=== PATIENT | female | born 1965 | race African-American/Black ===

== ENCOUNTER 2017-02-26 11:52 | Emergency (ER) | payer OTHER ==
[~2017-02-26] VITALS: Ht 157.5 cm; Wt 90.7 kg
[~2017-02-26 11:52] MED LIST: METFORMIN HCL500 MG PO; TOPROL XL25 MG PO
[2017-02-26 12:22] LABS: URINE BILIRUBIN NEGATIVE (Negative); URINE BLOOD TRACE (Negative); URINE COLOR YELLOW; URINE GLUCOSE-RANDOM* NEGATIVE (Negative); URINE KETONES NEGATIVE (Negative); URINE LEUKOCYTES-REFLEX TRACE (Negative); URINE PROTEIN (DIPSTICK) NEGATIVE (Negative); URINE SPECIFIC GRAVITY 1.015 (1.003-1.035); URINE UROBILINOGEN 0.2 E.U./dl (0.2-1.0)
== END 2017-02-26 13:20 | disposition left against medical advice (07) ==
LOC: ER 11:52
PROVIDERS: Physician Assistant
DX: R10.84 Generalized abdominal pain (principal); I10 Essential (primary) hypertension; E11.9 Type 2 diabetes mellitus without complications; Z53.21 Procedure and treatment not carried out due to patient leaving prior to being seen by health care provider; Z98.890 Other specified postprocedural states

== ENCOUNTER → 2021-03-14 | Outpatient (CLI) | payer BC, OTHER | LOC: SJCVCIMAG 08:06 | PROVIDERS: ATTEND Internal Medicine | DX: I07.1 Rheumatic tricuspid insufficiency (principal); R07.9 Chest pain, unspecified; E11.9 Type 2 diabetes mellitus without complications; I45.10 Unspecified right bundle-branch block ==